=== PATIENT | female | born 1955 | race Caucasian/White ===

== ENCOUNTER 2018-11-02 21:38 | Observation (INO) ==
[2018-11-02 22:32] LABS: BASO# 0.02 X1000 (0.0-0.2); BASO% 0.3 % (0.0-0.8); EOS# 0.06 X1000 (0.0-0.7); EOS% 0.9 % (0.0-10.0); HEMATOCRIT 37.1 % (37.0-47.0); HEMOGLOBIN 13.5 g/dL (12.0-16.0); LYMPH# 2.53 X1000 (1.2-3.4); LYMPH% 36.5 % (20.5-51.1); MCH 33.5 PG (27-31); MCHC 36.4 g/dL (33-37); MCV 92.1 FL (81-99); MONO% 10.1 % (1.7-9.3); NEUT# 3.63 X1000 (1.4-6.5); NEUT% 52.2 % (42.2-75.2); PLT 322 X1000 (130-400); RBC 4.03 XMIL (4.2-5.4); RDW 11.8 % (11.5-14.5); WBC 6.94 X1000 (4.8-10.8)
[2018-11-02 22:42] LABS: INR 0.89; PROTIME 12.1 Seconds (11.0-16.0); PTT 28.6 Seconds (22.3-41.8)
--- NOTE | 2018-11-02 22:52 | EKG Report ---
Test Performed on : 11/02/2018 10:03:42 PM Test Reason : stroke like symptoms Blood Pressure : / mmHG Vent. Rate : 074 BPM Atrial Rate : 074 BPM P-R Int : 140 ms QRS Dur : 084 ms QT Int : 394 ms P-R-T Axes : 064 024 058 degrees QTc Int : 437 ms Normal sinus rhythm. T wave abnormality, consider anterior ischemia Abnormal ECG No previous ECGs available Unconfirmed Result
[2018-11-02 22:56] LABS: ESTIMATED GFR > 60
[2018-11-02 22:59] LABS: AGAP 18; ALB/GLOB RATIO 1.6; ALBUMIN 4.4 g/dL (3.5-5.0); ALKALINE PHOSPHATASE 89 U/L (32-104); BUN 3 mg/dL (8-22); CALCIUM 9.5 mg/dL (8.8-10.2); CHLORIDE 86 mmol/L (98-107); COSMO 247; CREATININE 0.4 mg/dL (0.5-0.9); GLUCOSE 83 mg/dL (70-104); GOT 18 U/L (10-30); GPT 9 U/L (10-36); POTASSIUM 3.7 mmol/L (3.5-5.1); SODIUM 125 mmol/L (136-145); TCO2 21 mmol/L (25-35); TOTAL BILIRUBIN 0.27 mg/dL (0.20-1.00); TOTAL PROTEIN 7.2 g/dL (6.3-8.3)
[2018-11-02 23:15] LABS: FREE T4 1.26 ng/dL (0.93-1.70); TSH 2.48 uIUmL (0.27-4.20)
[2018-11-02 23:26] LABS: BILIRUBIN URINE NEGATIVE (NEGATIVE); BLOOD URINE NEGATIVE (NEGATIVE); COLOR STRAW; GLUCOSE URINE NEGATIVE (NEGATIVE); KETONE URINE NEGATIVE (NEGATIVE); LEUKOCYTES URINE NEGATIVE (NEGATIVE); NITRITE URINE NEGATIVE (NEGATIVE); PH URINE 6.5; PROTEIN URINE NEGATIVE (NEGATIVE); SP GRAVITY URINE 1.004; TURBIDITY URINE CLEAR (CLEAR); URINE SOURCE CLEAN CATCH; UROBILINOGEN URINE NORMAL (NORMAL)
[2018-11-02 23:27] LABS: UR EPITHELIAL CELLS <10 /HPF (<10); URINE BACTERIA NEGATIVE /HPF; URINE RBC <10 /HPF (<10); URINE WBC <10 /HPF (<10)
[2018-11-02 23:43] LABS: UR AMPHETAMINES QUAL NONE DETECTED (NONE DETECT); UR BARBITUATES QUAL NONE DETECTED (NONE DETECT); UR BENZODIAZEPIN QUAL NONE DETECTED (NONE DETECT); UR CANNABINOIDS QUAL NONE DETECTED (NONE DETECT); UR COCAINE QUAL NONE DETECTED (NONE DETECT); UR METHADONE QUAL NONE DETECTED (NONE DETECT); UR OPIATES QUAL NONE DETECTED (NONE DETECT); UR OXYCODONE QUAL NONE DETECTED (NONE DETECT); UR PCP QUAL NONE DETECTED (NONE DETECT)
--- NOTE | 2018-11-03 01:29 | PROVIDER DOCUMENTATION ---
This chart was entered by Payton Carmen Scribe, acting as scribe for Nidia Ramirez MD. HPI-General Adult - General Chief Complaint: Stroke-Like Symptoms Stated Complaint: (R) HAND AND LEG FEEL HEAVY Time Seen by Provider: 11/02/18 22:01 Source: patient Allergies/Adverse Reactions: Patient Allergies Allergy/AdvReac Type Severity Reaction Status Date / Time Penicillins Allergy Intermediate HIVES Verified 11/02/18 22:24 Sulfa (Sulfonamide Allergy Intermediate HIVES Verified 11/02/18 22:24 Antibiotics) Home Medications: Home Medication List Medication Instructions Recorded Confirmed Last Taken Type Alprazolam [Xanax] 0.25 mg PO BID 06/13/15 11/02/18 11/02/18 History Diltiazem HCl [Cardizem] 120 mg PO BID 06/13/15 11/02/18 11/02/18 History - History of Present Illness -Gen Adult Nature of Presenting Problems: Pt is 63/F presenting to ED stating the he R leg and arm feels "heavy" She says that it started about 8:30 last night. She says that she had also begun dropping things. Pt says that she has no hx of stroke. Pt says that she drinks 5-6 beers daily, denies heavier alcohol use. Last alcohol was at 3pm today. Hx of HTN. Pt PCP is Dr. Cooper. Location of Pain/Injury: reports: upper extremity, lower extremity Pain Radiation: reports: no radiation Quality of Pain: reports: other (heaviness) Severity: reports: mild Onset/Duration: reports: 4-6 hours ago Timing: reports: still present Context/Activities at Onset: reports: none Modifying Factors: improves with: nothing Associated Symptoms: denies: arm pain, chest pain, cough, nausea, shortness of breath, vomiting Similar Symptoms Previously?: No Recently seen or treated by another doctor?: No Review of Systems - Adult - REVIEW OF SYSTEMS - ADULT ROS:: vague historian Constitutional: reports: no symptoms reported, see HPI. denies: chills, fever Eyes: reports: no symptoms reported Ears, Nose, Mouth & Throat: reports: no symptoms reported Cardiovascular: reports: no symptoms reported. denies: chest pain Respiratory: reports: no symptoms reported. denies: cough, wheezing Gastrointestinal: denies: abdominal pain, nausea, vomiting Genitourinary: reports: no symptoms reported Musculoskeletal: reports: no symptoms reported. denies: bone pain, back pain Integumentary: reports: no symptoms reported Neurological: reports: see HPI, numbness, paresthesia, other. denies: loss of balance, slurred speech Psychiatric: reports: no symptoms reported Endocrine: reports: no symptoms reported Hematologic/Lymphatic: reports: no symptoms reported Allergic/Immunologic: reports: no symptoms reported All Other Systems: Reviewed and Negative Past History - Adult - PAST MEDICAL HISTORY-ADULT Review of Records: reports: Old Records Reviewed, Nursing Assessment Review, Med ications Reviewed, Social history reviewed & non-contributory. Major Childhood Illnesses: reports: denies history Cardiovascular: reports: HTN Respiratory: reports: denies history Gastrointestinal: reports: denies history Obstetrical/Gynecological: reports: denies history Genitourinary: reports: denies history Musculoskeletal: reports: denies history Neurological: reports: denies history Psychiatric: reports: anxiety, depression, psychiatric problems Endocrine/Immune: reports: denies history Other Conditions: reports: denies history - IMMUNIZATION STATUS Childhood Immunizations: See Nurse Assessment Flu Vaccine: See Nurse Assessment - FAMILY HISTORY Family History: reviewed, not pertinent - SOCIAL HISTORY Smoking: cigarettes, greater than 1 pack/day Provider spent 3-5 mins advising pt. on dangers of tobacco.: Discussed manners to quit use, and f/u contacts for add'l counseling. Substance Use: none/never Alcohol Use Frequency: every day Number of drinks per typical drinking period:: 3-4 drinks Living Situation: family Physical Exam-General - PHYSICAL EXAM-ADULT Initial Vital Signs Reviewed: Yes - CONSTITUTIONAL General Appearance: appears well, alert, thin, other (pt has alcohol odor and was trembling during exam) - EYES Eyes: PERRL/EOMI, pink conjunctivae - HEAD, EARS, NOSE, MOUTH & THROAT HENMT: normocephalic/atraumatic, moist mucous membranes, normal ENT inspection - NECK Neck: non-tender, full range of motion, supple, normal inspection - RESPIRATORY Respiratory: chest non-tender, lungs clear, no respiratory distress, no accessory muscle use - CARDIOVASCULAR Cardiovascular: normal peripheral pulses, regular rate, rhythm, no murmur - GASTROINTESTINAL (ABDOMEN) Abdominal Exam: non tender, soft - MUSCULOSKELETAL Back Exam: normal inspection Extremity: normal range of motion, non-tender, other (ambulates with assistance) - SKIN Integumentary: normal color, normal turgor, warm/dry - NEUROLOGIC Neurologic: other (R arm and R leg drifting as well as some bilateral UE ataxia) . negative: facial droop - PSYCHIATRIC Psych/Mental Status: normal mood/affect, normal thought content, normal thought process, oriented x 3 Progress - PLAN OF CARE/RESULTS Progress/Plan/Lab Results: Vital Signs - 8 hr 11/02/18 21:38 11/02/18 23:57 Temperature 97.6 F Pulse Rate 82 77 Respiratory Rate 15 20 Blood Pressure 152/73 162/73 O2 Sat by Pulse Oximetry 100 95 Laboratory Results - last 24 hr 11/02/18 11/02/18 11/02/18 22:10 22:10 22:10 WBC 6.94 RBC 4.03 L Hgb 13.5 Hct 37.1 MCV 92.1 MCH 33.5 H MCHC 36.4 RDW Std Deviation 11.8 Plt Count 322 MPV 9.0 Immature Gran % (Auto) 0.0 Neut % (Auto) 52.2 Lymph % (Auto) 36.5 Pierce % (Auto) 10.1 H Eos % (Auto) 0.9 Baso % (Auto) 0.3 Immature Gran # (Auto) 0.00 Neut # (Auto) 3.63 Lymph # (Auto) 2.53 Pierce # (Auto) 0.70 H Eos # (Auto) 0.06 Baso # (Auto) 0.02 PT INR PTT (Actin FS) Sodium 125 L Potassium 3.7 Chloride 86 L Carbon Dioxide 21 L Anion Gap 18 BUN 3 L Creatinine 0.4 L Estimated GFR/1.73 m2 > 60 BUN/Creatinine Ratio 8 Glucose 83 Calculated Osmolality 247 Calcium 9.5 Total Bilirubin 0.27 AST 18 ALT 9 L Alkaline Phosphatase 89 Troponin T Total Protein 7.2 Albumin 4.4 Globulin 2.8 Albumin/Globulin Ratio 1.6 TSH Free T4 Urine Source Urine Color Urine Turbidity Urine pH Ur Specific [place] Urine Protein Ur Glucose (Stick) Ur Ketones (Stick) Urine Blood Urine Nitrite Urine Bilirubin Urobilinogen Dipstick Urine Leukocytes Urine WBC (Auto) Urine RBC (Auto) U Epithel Cells (Auto) Urine Bacteria (Auto) Urine Opiates Screen Ur Oxycodone Screen Ur Methadone, Qual Ur Barbiturates Screen Ur Phencyclidine Scrn Ur Amphetamines Screen U Benzodiazepines Scrn Urine Cocaine Screen U Cannabinoids Screen Plasma/Serum Ethyl Alc 95 H 11/02/18 11/02/18 11/02/18 22:10 22:10 22:10 WBC RBC Hgb Hct MCV MCH MCHC RDW Std Deviation Plt Count MPV Immature Gran % (Auto) Neut % (Auto) Lymph % (Auto) Pierce % (Auto) Eos % (Auto) Baso % (Auto) Immature Gran # (Auto) Neut # (Auto) Lymph # (Auto) Pierce # (Auto) Eos # (Auto) Baso # (Auto) PT 12.1 INR 0.89 PTT (Actin FS) 28.6 Sodium Potassium Chloride Carbon Dioxide Anion Gap BUN Creatinine Estimated GFR/1.73 m2 BUN/Creatinine Ratio Glucose Calculated Osmolality Calcium Total Bilirubin AST ALT Alkaline Phosphatase Troponin T < 0.010 Total Protein Albumin Globulin Albumin/Globulin Ratio TSH 2.48 Free T4 1.26 Urine Source Urine Color Urine Turbidity Urine pH Ur Specific [place] Urine Protein Ur Glucose (Stick) Ur Ketones (Stick) Urine Blood Urine Nitrite Urine Bilirubin Urobilinogen Dipstick Urine Leukocytes Urine WBC (Auto) Urine RBC (Auto) U Epithel Cells (Auto) Urine Bacteria (Auto) Urine Opiates Screen Ur Oxycodone Screen Ur Methadone, Qual Ur Barbiturates Screen Ur Phencyclidine Scrn Ur Amphetamines Screen U Benzodiazepines Scrn Urine Cocaine Screen U Cannabinoids Screen Plasma/Serum Ethyl Alc 11/02/18 11/02/18 23:00 23:00 WBC RBC Hgb Hct MCV MCH MCHC RDW Std Deviation Plt Count MPV Immature Gran % (Auto) Neut % (Auto) Lymph % (Auto) Pierce % (Auto) Eos % (Auto) Baso % (Auto) Immature Gran # (Auto) Neut # (Auto) Lymph # (Auto) Pierce # (Auto) Eos # (Auto) Baso # (Auto) PT INR PTT (Actin FS) Sodium Potassium Chloride Carbon Dioxide Anion Gap BUN Creatinine Estimated GFR/1.73 m2 BUN/Creatinine Ratio Glucose Calculated Osmolality Calcium Total Bilirubin AST ALT Alkaline Phosphatase Troponin T Total Protein Albumin Globulin Albumin/Globulin Ratio TSH Free T4 Urine Source CLEAN CATCH Urine Color STRAW Urine Turbidity CLEAR Urine pH 6.5 Ur Specific [place] 1.004 Urine Protein NEGATIVE Ur Glucose (Stick) NEGATIVE Ur Ketones (Stick) NEGATIVE Urine Blood NEGATIVE Urine Nitrite NEGATIVE Urine Bilirubin NEGATIVE Urobilinogen Dipstick NORMAL Urine Leukocytes NEGATIVE Urine WBC (Auto) <10 Urine RBC (Auto) <10 U Epithel Cells (Auto) <10 Urine Bacteria (Auto) NEGATIVE Urine Opiates Screen NONE DETECTED Ur Oxycodone Screen NONE DETECTED Ur Methadone, Qual NONE DETECTED Ur Barbiturates Screen NONE DETECTED Ur Phencyclidine Scrn NONE DETECTED Ur Amphetamines Screen NONE DETECTED U Benzodiazepines Scrn NONE DETECTED Urine Cocaine Screen NONE DETECTED U Cannabinoids Screen NONE DETECTED Plasma/Serum Ethyl Alc Orders Category Date Time Status CT HEAD W/O CONTRAST [CT] Stat Exams 11/02/18 22:02 Taken ALCOHOL BLOOD Stat Lab 11/02/18 22:10 Completed CBC WITH ELECTRONIC DIFF [HEME] Stat Lab 11/02/18 22:10 Completed COMPREHENSIVE METABOLIC PANEL [CHEM] Stat Lab 11/02/18 22:10 Completed FREE T4 Stat Lab 11/02/18 22:10 Completed PROTIME WITH INR [COAG] Stat Lab 11/02/18 22:10 Completed PTT [COAG] Stat Lab 11/02/18 22:10 Completed TROPONIN T Stat Lab 11/02/18 22:10 Completed TSH Stat Lab 11/02/18 22:10 Completed URINALYSIS W/POSS RFLX CULT [URINALYSIS] Stat Lab 11/02/18 23:00 Completed URINE DRUG SCREEN Stat Lab 11/02/18 23:00 Completed EKG [EKG] Stat Ther 11/02/18 21:55 Draft Patient with some drift on right side and some ataxia. Unsure if some of this is due to alcohol as well. She is out of the window for any TPA given that we are 27 hours out from onset of symptoms. Labs showing nothing acute. She has hyponat remia but this appears chronic and unchanged from prior labs. Likely 2.2 to beer drinking. Patient was counseled on labs and imaging findings. Spoke to Dr Howe about OBS admission for stroke rule out given hx of HTN. She is on some odd medication for HTN and states she has never had afib before. She was accepted for admission. Further orders to be placed by their team. Result Diagrams: 11/02/18 22:10 11/02/18 22:10 - CONSULTS/PCP/HOSPITALIST Notification #1 *Consult/PCP/Hospitalist*: Shyam Time Discussed: 00:54 Consult Disposition: Admit Departure - Departure Date of Disposition Decision: 11/03/18 Time of Disposition Decision: 00:54 DIAGNOSIS: Right sided weakness Disposition: ADMITTED INPATIENT 09 Certified Medical Emergency: Emergent Condition: Stable Referrals and Follow-Ups: Karsten Cooper MD [Primary Care Provider] - Discharge Education: Steps to Quit Smoking, [id number] - Critical Care Note This patient required my direct & personal management of CC.: No Attestation - Physician/ ROYAL Attestation Patient care was provided by Advanced Practice Provider:: No The physician spent face to face time with patient:: Yes Advanced Practice Provider documentation review:: Supervising physician onsite and consulted in the evaluation and care of this patient. The physician did have a face to face encounter with the patient. - NIH Stroke Scale NIH Type: Initial Evaluation Level of Consciousness: 0-Alert LOC Questions (ask month and age): 0-Answers Both Correctly LOC Commands (ask to open & close eyes;make a fist, let go): 0-Obeys Both Correctly Best Gaze (horizontal eye movement): 0-Normal Visual (use finger movement, counting or visual threat): 0-No Visual Loss Facial Palsy (show teeth or raise eyebrows & close eyes tght: 0-Symmetrical Movement Motor Function-left arm: 0-Normal Motor Function-right arm: 1-Drift Motor Function-left le-Drift Motor Function-right le-Some Effort Against [place] Limb Ataxia([id number], or heel to roberson): 2-Present in two limbs Sensory(pin prick to face,arms,trunk,legs-compare side/side): 1-Mild to Moderate Decrease in Sensation Best Language(name item/read sentence.Ex-Down to Earth): 0-No Aphasia Dysarthria(Pt read words or say words Ex.Mama,Tip-Top,Thanks: 0-Normal Articulation Extinction and Inattention: 0-Normal NIH Total Score: 7 Modified Cross Anchor Score Criteria: 1-no significant disability despite symptoms This chart was documented by the indicated scribe, (Payton Carmen, Scribe) and accurately reflects the services I performed and decisions made by me, Nidia Ramirez MD, as attested by the provider's signature.
--- NOTE | 2018-11-03 02:14 | ED EKG INTERP ---
EKG Interpretation - EKG Time of EKG reading by physician:: 01:29 EKG Read and Signed by:: Nidia Ramirez EKG Interpretation (*Must complete 3 of following elements*): Normal Rate: 77 Rhythm: NSR Marsing: normal QRS: normal KS Interval: normal ST Wave: normal Attestation - Physician/ ROYAL Attestation The physician spent face to face time with patient:: Yes Advanced Practice Provider documentation review:: Supervising physician onsite and consulted in the evaluation and care of this patient. The physician did have a face to face encounter with the patient.
[2018-11-03] MEDS ORDERED: M.V.I.-12 10 ML, FOLIC ACID 1 MG, MAGNESIUM SULFATE 1 GM, THIAMINE 100 MG in NS 1,000 ML IV ONE (02:40)
--- NOTE | 2018-11-03 04:12 | HISTORY AND PHYSICAL ---
PRIMARY CARE PROVIDER: Dr. Cooper. CHIEF COMPLAINT: Right leg weakness. HISTORY OF PRESENTING ILLNESS: A 63-year-old female with a history of hypertension who had presented to emergency department complaining of having difficulty walking. She states that she was watching TV earlier and when she woke up she had some difficulty walking on her right side. Apparently, she was also drinking alcohol during this time. She was evaluated in the emergency department. She seemed somewhat intoxicated. Her breath smelled of alcohol and her history is not reliable. However, she states that she feels better and she was actually ambulating in the hallway. Due to patient's presenting symptoms, it was thought that we will place her for observation for further evaluation and management. At time of my examination, patient denied any headache, fever, chills, chest pain, shortness of breath, hemoptysis, melena or weight changes. States she feels better and wants to go home. PAST MEDICAL HISTORY: Hypertension. PAST SURGICAL: Hysterectomy. ALLERGIES: Penicillin and sulfa. CURRENT MEDICATIONS: She does not recall and nursing staff will reconcile. SOCIAL HISTORY: A 30 pack years history of smoking. Admits to drinking beer regularly. Denies any illicit drug use. FAMILY HISTORY: No history of coronary artery disease. REVIEW OF SYSTEMS: Fourteen point review of systems as listed in HPI. Other systems negative. PHYSICAL EXAMINATION: GENERAL: Cooperative, friendly female. She is resting comfortably now. VITAL SIGNS: Temperature 97.6 degrees, pulse 82, respirations 15, blood pressure 152/73. HEENT: Atraumatic, normocephalic. Extraocular movements intact. PERRLA. NECK: No masses. CHEST: Clear to auscultation. CARDIOVASCULAR: Regular rate and rhythm. ABDOMEN: Soft. Positive bowel sounds. EXTREMITIES: No edema. NEUROLOGIC: She is awake, alert, oriented x3. Speech is intact. Strength 5/5 all extremities. GENITOURINARY: No bladder distention. SKIN: Warm. LABORATORIES AND STUDIES: Alcohol level was 95. WBC 6.94, hemoglobin 13.5, hematocrit 37.1 platelets 322,000. Sodium 125, potassium 3.7, chloride 86, CO2 is 21, BUN is 3, creatinine 0.4, glucose is 83. CT of the head was unremarkable. ASSESSMENT: This is a 63-year-old female with a history of hypertension and possible chronic alcoholism who had presented to the emergency department with complaint of right leg weakness. Apparently, when she had come to the emergency department she states her symptoms resolved. She had also a smell of alcohol and she was ambulating in the hallway. However due to her presenting symptoms, it was thought that we will keep her for observation for further evaluation and management 1. Possible transient ischemic attack. 2. Alcohol intoxication. 3. Hypertension. PLAN: 1. We will admit patient to medical floor with telemetry. 2. Continue with neuro checks. 3. We will check a carotid duplex. 4. If she is still symptomatic, we will consider MRI. 5. We will give patient a banana bag, and thiamine and folate. 6. Monitor blood pressure closely. 7. Put patient on DVT prophylaxis with SCD. 8. We will continue to follow, reassess and make further recommendation based on patient's clinical course. cc: MD Santana Toscano MD
--- NOTE | 2018-11-03 06:25 | Diag Imaging Result Doc PS360 ---
CT HEAD W/O CONTRAST - 11/02/2018 INDICATION: stroke like symptoms COMPARISON: 05/25/2017 FINDINGS: There is rather extensive cerebral white matter hypodensity compatible with chronic microvascular ischemia. The appearance is stable from prior. No intracranial mass or hemorrhage. The skull is intact. The sinuses, mastoids, and middle ears are clear. There is advanced vascular calcification of the carotid siphons bilaterally. IMPRESSION: No acute process. Stable extensive chronic microvascular ischemia. This exam was performed using automated exposure control, adjustment of mA or kV according to patient size, and/or use of iterative reconstruction technique Electronically signed by Sridhar Lopez 11/03/2018 6:23 AM
[2018-11-03 07:44] VITALS: BP 170/59
[2018-11-03] MEDS ORDERED: CARDIZEM CD PO SCH (09:00)
[2018-11-03] MEDS ORDERED: XANAX PO SCH (09:00)
--- NOTE | 2018-11-04 09:00 | DISCHARGE SUMMARY ---
ADMISSION DATE: 11/03/2018 DISCHARGE DATE: 11/03/2018 DISCHARGING DIAGNOSIS: Right leg weakness etiology to be determined. SECONDARY DIAGNOSIS: 1. Cervical spondylosis, spondylolisthesis L4 on L5. 2. Raynaud's syndrome. 3. Hypertension. 4. Nicotine dependency. 5. Patient with anxiety. BRIEF HISTORY: Please see the H and P that was done by Hospitalist. In brief, she is a 63-year- old white female with above problems, came to the hospital with difficulty walking and numbness and weakness in the right leg. The patient was drinking alcohol. She was not seen in my office since last year. She lost her . She smokes. Upon questioning, the patient did not have any weakness in the right side, no headaches, no TIA symptoms. No back pain. The patient was admitted for observation. During the hospital course, neurovascular exam is intact. Straight leg raise test was normal. Pulses are palpable. WORKUP: As follows: 1. CBC: white count 6.9, hematocrit 37, platelets 322. PT 12, INR 0.89. Sodium 135, potassium 3.7, BUN 3, creatinine 0.4, glucose 83. LFTs were normal. TSH, free T4, cardiac enzymes were negative. Urinalysis is clear. Urine toxicology screen was negative. Plasma alcohol 95. 2. EKG normal sinus, T wave inversion in the lateral leads. CT head: Extensive chronic microvascular ischemia, no acute process. The patient is anxious to go home. Carotid Doppler was done, results are pending. The patient wants to go home with the following instructions: 1. Cardizem 120 p.o. b.i.d. 2. Xanax 0.25 mg p.o. b.i.d. 3. Quit smoking. 4. Aspirin 81 mg daily. 5. Follow up on the pending lab results. 6. Repeat the SMA-7, lipid panel, A1c, B12, TSH in my office, and follow up in my office next week. cc: Santana Cooper MD MTDD
--- NOTE | 2018-11-05 07:09 | Carotid Study ---
DATE: 11/03/2018 REQUESTING PHYSICIAN: Dr. Cooper. FISH HATCHERY SUPERINTENDENT: Hieu. INDICATIONS: TIA. EQUIPMENT: [employer] Vivid E9 ultrasound system with a 9L-D transducer. FINDINGS: Complete diagram of ultrasound images can be seen scanned to patient's medical record. The peak systolic velocity noted on the right side is in the distal internal, was 74. The peak systolic velocity on the left side is noted to be in the proximal internal, noted to be 117. Calculated internal to common ratio on the right 0.84 and left 1.02. Calculated stenosis on the right 0 to 39 percent, left 40 to 59 percent. There appears to be atherosclerosis. This is more visually prominent on the left side, which is producing a moderate stenosis of 40 to 59 percent. Both vertebral arteries were antegrade flow. INTERPRETATION: Moderate stenosis on the left side of 40 to 59 percent. The right side is normal to mild with a stenosis of 0 to 39 percent. Given these findings, I would recommend continue monitoring. cc: MD John Chowdhury MD Jagan Reddy, MD
== END 2018-11-03 11:41 | disposition home or self-care (01) ==
LOC: ED 21:38 → 3N 21:38 → SUATTDRO 11-03 02:11
PROVIDERS: ADMIT Internal Medicine; ATTEND Internal Medicine

== ENCOUNTER 2019-01-30 16:21 | Inpatient (IN) ==
[2019-01-30 17:24] LABS: URINE SOURCE CLEAN CATCH
[2019-01-30 17:27] LABS: BASO# 0.03 X1000 (0.0-0.2); BASO% 0.6 % (0.0-0.8); EOS# 0.02 X1000 (0.0-0.7); EOS% 0.4 % (0.0-10.0); HEMATOCRIT 35.8 % (37.0-47.0); HEMOGLOBIN 12.7 g/dL (12.0-16.0); LYMPH# 2.19 X1000 (1.2-3.4); LYMPH% 43.6 % (20.5-51.1); MCH 33.4 PG (27-31); MCHC 35.5 g/dL (33-37); MCV 94.2 FL (81-99); MONO# 0.69 X1000 (0.11-0.59); MONO% 13.7 % (1.7-9.3); MPV 9.1 FL (7.4-10.4); NEUT# 2.09 X1000 (1.4-6.5); NEUT% 41.7 % (42.2-75.2); PLT 302 X1000 (130-400); RDW 11.4 % (11.5-14.5); WBC 5.02 X1000 (4.8-10.8)
[2019-01-30 17:28] LABS: BILIRUBIN URINE NEGATIVE (NEGATIVE); BLOOD URINE NEGATIVE (NEGATIVE); COLOR YELLOW; GLUCOSE URINE NEGATIVE (NEGATIVE); KETONE URINE NEGATIVE (NEGATIVE); LEUKOCYTES URINE NEGATIVE (NEGATIVE); NITRITE URINE NEGATIVE (NEGATIVE); PH URINE 6.5; PROTEIN URINE NEGATIVE (NEGATIVE); SP GRAVITY URINE 1.006; TURBIDITY URINE CLEAR (CLEAR); UROBILINOGEN URINE NORMAL (NORMAL)
[2019-01-30 17:29] LABS: UR EPITHELIAL CELLS <10 /HPF (<10); URINE BACTERIA NEGATIVE /HPF; URINE RBC <10 /HPF (<10); URINE WBC <10 /HPF (<10)
[2019-01-30 17:34] LABS: INR 0.95; PROTIME 12.7 Seconds (11.0-16.0); PTT 27.1 Seconds (22.3-41.8)
--- NOTE | 2019-01-30 18:09 | Diag Imaging Result Doc PS360 ---
EXAM: CT HEAD W/O CONTRAST INDICATION: Left upper extremity weakness TECHNIQUE: This exam was performed using automated exposure control, adjustment of mA or kV according to patient size, and/or use of iterative reconstruction technique. COMPARISON: 11/02/2018 FINDINGS: There is extensive patchy low attenuation in the periventricular and subcortical white matter suggesting advanced microangiopathy, stable. There is a stable chronic lacunar infarct in the periventricular white matter on the left. There is no definite acute infarct given the limited sensitivity of CT versus MRI. There is no discrete intracranial mass, mass effect, or intracranial hemorrhage. The surrounding soft tissues and bony structures are essentially unremarkable. IMPRESSION: Stable chronic changes. No definite acute intracranial pathology by CT. Electronically signed by Teddy Reynoso 01/30/2019 6:07 PM
[2019-01-30 18:16] LABS: ESTIMATED GFR > 60
[2019-01-30 18:21] LABS: AGAP 17; ALB/GLOB RATIO 1.7; ALBUMIN 4.1 g/dL (3.5-5.0); ALKALINE PHOSPHATASE 73 U/L (32-104); BUN 5 mg/dL (8-22); CALCIUM 9.1 mg/dL (8.8-10.2); CHLORIDE 86 mmol/L (98-107); CK PROFILE 63 U/L (24-173); COSMO 250; CREATININE 0.5 mg/dL (0.5-0.9); GLUCOSE 80 mg/dL (70-104); GOT 23 U/L (10-30); GPT 12 U/L (10-36); POTASSIUM 3.3 mmol/L (3.5-5.1); SODIUM 126 mmol/L (136-145); TCO2 23 mmol/L (25-35); TOTAL BILIRUBIN 0.22 mg/dL (0.20-1.00); TOTAL PROTEIN 6.5 g/dL (6.3-8.3)
[2019-01-30] MEDS ORDERED: M.V.I.-12 10 ML, FOLIC ACID 1 MG, MAGNESIUM SULFATE 1 GM, THIAMINE 100 MG in NS 1,000 ML IV ONE (19:18)
[2019-01-30] MEDS ORDERED: NS 1,000 ML IV ONE (19:18)
--- NOTE | 2019-01-30 20:05 | PROVIDER DOCUMENTATION ---
This chart was entered by Arely Murray Scribe, acting as scribe for Boyd Carpio MD. HPI-General Adult - General Chief Complaint: Nausea Stated Complaint: RESTREPO/N Time Seen by Provider: 01/30/19 16:26 Source: patient, EMS (first response) Allergies/Adverse Reactions: Patient Allergies Allergy/AdvReac Type Severity Reaction Status Date / Time Penicillins Allergy Intermediate HIVES Verified 01/29/19 21:18 Sulfa (Sulfonamide Allergy Intermediate HIVES Verified 01/29/19 21:18 Antibiotics) Home Medications: Home Medication List Medication Instructions Recorded Confirmed Last Taken Type Alprazolam [Xanax] 0.25 mg PO BID 06/13/15 01/29/19 11/02/18 History Diltiazem HCl [Cardizem] 120 mg PO BID 06/13/15 01/29/19 11/02/18 History Tramadol/APAP [Ultracet 1 tab PO PRN PRN 01/29/19 01/29/19 Unknown History 37.5MG/325Mg] - History of Present Illness -Gen Adult Nature of Presenting Problems: from last nights visit to ed pt refused a CT: Pt is refusing head CT, pt is sober at this time, alert and oriented, steady gait, answering questions appropriately, pt has capacity, understands the risks, benefits and alternatives and is choosing to leave AMA, pt given strict return precautions for any new or worsening symptoms Result Diagrams: 63 yowf presents to the ed via ems for 2nd time in 2 days for same complaints. pt sts today she has worsening left arm heaviness, nausea, left neck pain, sob, loose stool and RESTREPO. pt sts "I feel like I had a stroke but I aint never had one before". pt on exam is in no distress has no weakness or neuro deficits. pt once back sts sx have all worsened. pt has chronic back pain Location of Pain/Injury: reports: upper extremity Pain Radiation: reports: no radiation Quality of Pain: reports: other (heaviness) Severity: reports: mild Onset/Duration: reports: 24 hours ago Timing: reports: still present, intermittent, getting worse Context/Activities at Onset: reports: light activity Modifying Factors: improves with: nothing Associated Symptoms: reports: arm pain (heaviness), back/neck pain (chronic), headaches, malaise, nausea, shortness of breath. denies: chest pain, diarrhea (does have mild loose stool but not diarrhea), fever/chills, vomiting Similar Symptoms Previously?: Yes Recently seen or treated by another doctor?: Yes (seen last night in ed ) Review of Systems - Adult - REVIEW OF SYSTEMS - ADULT Constitutional: denies: chills, fever Eyes: reports: no symptoms reported Ears, Nose, Mouth & Throat: reports: no symptoms reported Cardiovascular: denies: chest pain, palpitations Respiratory: reports: see HPI, shortness of breath. denies: cough, wheezing Gastrointestinal: reports: see HPI, nausea. denies: diarrhea, vomiting Genitourinary: reports: no symptoms reported Musculoskeletal: reports: see HPI, back pain (chronic). denies: neck pain Integumentary: reports: no symptoms reported Neurological: reports: see HPI, headache/migraines. denies: dizziness/vertigo, slurred speech, syncope, tremors Psychiatric: reports: see HPI, alcohol/drug dependence (etoh) Endocrine: reports: no symptoms reported Hematologic/Lymphatic: reports: see HPI, easy bruising Allergic/Immunologic: reports: no symptoms reported All Other Systems: Reviewed and Negative Past History - Adult - PAST MEDICAL HISTORY-ADULT Review of Records: reports: Old Records Reviewed, Nursing Assessment Review, Medications Reviewed, Social history reviewed & non-contributory. Major Childhood Illnesses: reports: denies history Cardiovascular: reports: HTN Respiratory: reports: denies history Gastrointestinal: reports: denies history Obstetrical/Gynecological: reports: denies history Genitourinary: reports: denies history Musculoskeletal: reports: chronic pain, neck/back injury Neurological: reports: denies history Psychiatric: reports: anxiety, depression, psychiatric problems Endocrine/Immune: reports: denies history Other Conditions: reports: denies history - PRIOR SURGERIES/PROCEDURES Surgical/Procedure History: reports: hysterectomy, orthopedic (extremity) - IMMUNIZATION STATUS Childhood Immunizations: See Nurse Assessment Flu Vaccine: See Nurse Assessment - FAMILY HISTORY Family History: reviewed, not pertinent - SOCIAL HISTORY Smoking: cigarettes, less than 1 pack/day Substance Use: alcohol Alcohol Use Frequency: every day Number of drinks per typical drinking period:: 5-10 drinks Living Situation: alone Physical Exam-General - PHYSICAL EXAM-ADULT Initial Vital Signs Reviewed: Yes - CONSTITUTIONAL General Appearance: appears well, alert, no apparent distress - EYES Eyes: PERRL/EOMI, pink conjunctivae - HEAD, EARS, NOSE, MOUTH & THROAT HENMT: moist mucous membranes - NECK Neck: non-tender, full range of motion, normal inspection - RESPIRATORY Respiratory: chest non-tender, lungs clear, normal breath sounds, decreased rate - CARDIOVASCULAR Cardiovascular: normal peripheral pulses, regular rate, rhythm - CHEST (BREASTS) Chest/Breast: deferred - GASTROINTESTINAL (ABDOMEN) Abdominal Exam: normal bowel sounds, non tender, soft, other (c/o nausea) - GENITOURINARY Female Genitalia/Pelvic Exam: deferred Rectal Exam: deferred Hemoccult Exam: deferred - MUSCULOSKELETAL Back Exam: normal inspection, no CVA tenderness, no vertebral tenderness Extremity: normal range of motion, normal inspection, no pedal edema, no calf tenderness, normal capillary refill, other (equal health and safety manager strength) - SKIN Integumentary: normal color, normal turgor, abrasion(s) - NEUROLOGIC Neurologic: b2b sales representative II-XII nml as tested, no motor/sensory deficits. negative: aphasia, facial droop, focal weakness - PSYCHIATRIC Psych/Mental Status: normal mood/affect, normal thought content, normal thought process, oriented x 3 Progress - PLAN OF CARE/RESULTS Progress/Plan/Lab Results: Vital Signs - 8 hr 01/30/19 16:40 Pulse Rate 84 Respiratory Rate 11 L Blood Pressure 153/88 O2 Sat by Pulse Oximetry 95 Result Diagrams: 01/30/19 17:17 01/30/19 17:17 - REASSESSMENT Reassessment #1 Time Reassessed: 19:00 (Pt's labs are significant for hyponatremia and hypokalemia; may be due in part to chronic alcohol use; alcohol level is still elevated; CT Head and other work-up negative for acute findings. Dr. Howe kindly accepts the pt for observation.) - EKG 1 Time of EKG reading by physician:: 17:17 EKG Read and Signed by:: Zeke Casanova EKG Interpretation (*Must complete 3 of following elements*): Normal Rate: 78 Rhythm: sinus rhythm [place]: normal QRS: normal [place] Interval: normal ST Wave: normal - CONSULTS/PCP/HOSPITALIST Notification #1 *Consult/PCP/Hospitalist*: Dr. Howe Time Discussed: 19:15 Consult Disposition: Admit Departure - Departure Date of Disposition Decision: 01/30/19 Time of Disposition Decision: 20:01 DIAGNOSIS: Hyponatremia, Left arm weakness Disposition: ADMITTED INPATIENT 09 Certified Medical Emergency: Emergent Condition: Fair Referrals and Follow-Ups: Karsten Cooper MD [Primary Care Provider] - - Critical Care Note This patient required my direct & personal management of CC.: No Attestation - Physician/ ROYAL Attestation Patient care was provided by Advanced Practice Provider:: No The physician spent face to face time with patient:: Yes Advanced Practice Provider documentation review:: Supervising physician onsite and consulted in the evaluation and care of this patient. The physician did have a face to face encounter with the patient. This chart was documented by the indicated scribe, (Arely Murray Scribe) and accurately reflects the services I performed and decisions made by me, Boyd Carpio MD, as attested by the provider's signature.
[2019-01-30] MEDS ORDERED: KLOR-CON PO ONE (20:55)
[2019-01-30] MEDS ORDERED: TYLENOL PO PRN (22:04)
[2019-01-30] MEDS ORDERED: ZOFRAN IV PRN (22:04)
--- NOTE | 2019-01-30 22:11 | EKG Report ---
Test Performed on : 01/30/2019 5:11:48 PM Test Reason : chest discomfort Blood Pressure : / mmHG Vent. Rate : 078 BPM Atrial Rate : 078 BPM P-R Int : 130 ms QRS Dur : 082 ms QT Int : 404 ms P-R-T Axes : 068 031 051 degrees QTc Int : 460 ms Normal sinus rhythm. Normal ECG When compared with ECG of 02-NOV-2018 22:03, T wave inversion no longer evident in Anterior leads Unconfirmed Result
--- NOTE | 2019-01-30 22:14 | HISTORY AND PHYSICAL ---
CHIEF COMPLAINT: Nausea, heaviness in the left arm, left neck pain, shortness of breath. HISTORY OF PRESENT ILLNESS: Ms. Orr is a 63-year-old female who comes into the emergency room for the 2nd time in 2 days. Yesterday, she came in but deferred wanting to have a CT scan and decided to leave against medical advice. She was told to come back if her symptoms worsened. She is known to have a history of hypertension and alcohol and tobacco use and abuse. She is an everyday drinker, 5-10 drinks. Today, she states that her left arm heaviness is worse. She is having nausea, left neck pain, shortness of breath, loose stools and headache. States that she feels like she has had a stroke but she has never had one before in her own words. On exam, she has no weakness or neurologic deficits. Her laboratory data does show hyponatremia which is likely related to beer potomania. She was admitted back on 11/03/2018 for a very similar complaint. She was worked up for a TIA. She was found to have left side 40% to 59% occlusion of her carotid. The right side is normal to mild with 0% to 39%. CT of her head was completed. It showed stable chronic lacunar infarct in the periventricular white matter on the left. Again, this was similar to what was seen back on 11/02/2018. The patient's alcohol level is still elevated at 111. Her potassium is low. She will be admitted and observed for further evaluation and treatment. PAST MEDICAL HISTORY: Alcohol abuse, tobacco abuse, hypertension. PREVIOUS SURGICAL HISTORY: Hysterectomy. SOCIAL HISTORY: Thirty pack-year smoking history. Beer daily, 5-10. Denies illicit drugs. FAMILY HISTORY: She denies a family history of coronary artery disease. ALLERGIES: Penicillin and sulfa. HOME MEDICATIONS: The patient states she does not recall. An order was placed for Nursing to reconcile home medications with the pharmacy. REVIEW OF SYSTEMS: Fourteen-point review of systems conducted with the patient. Pertinent positives listed above in the HPI. All other systems reviewed negative. PHYSICAL EXAMINATION: VITAL SIGNS: Pulse 87, respirations 17, blood pressure 169/89, oxygen saturation 96% on room air. GENERAL: A 63-year-old female sitting in the ER stretcher, seems anxious. She is alert and oriented times 3. No neurologic deficits noted. She is in no acute distress. HEENT: Head is atraumatic, normocephalic. Pupils equal, round, reactive to light. Extraocular eye movement is intact. Sclera is anicteric. Conjunctiva is pink. Oral mucosa is dry. NECK: Supple. No JVD. No thyromegaly. Trachea is midline. No cervical lymphadenopathy. CARDIAC: S1, S2 appreciated. No murmurs, gallops, rubs. LUNGS: Clear to auscultation. No rhonchi, wheezes, rales. Symmetric rise and fall with respirations. ABDOMEN: Soft, nondistended, nontender. Bowel sounds present all 4 quadrants, normoactive. No pulsatile mass. No organomegaly. EXTREMITIES: No clubbing, cyanosis or edema. NEUROLOGICAL: Alert and oriented times 3. Cranial nerves 2 through 12 grossly intact. MUSCULOSKELETAL: 5/5 strength upper and lower extremities, equal bilaterally. GENITOURINARY: No bladder distention. Patient voids. Otherwise deferred. DIAGNOSTIC DATA: As mentioned above in the HPI, CT scan shows chronic stable changes. EKG shows sinus rhythm with a rate of 78. LABORATORY DATA: WBC 5.02. Hemoglobin 12.7. Hematocrit 35.8. Platelet count 302. Coagulation studies within normal limits. Sodium 126. Potassium 3.3. Chloride 86. Carbon dioxide 23. BUN 5. Creatinine 0.5. Glucose 80. Urine unremarkable. Serum alcohol 111. ASSESSMENT: 1. Acute alcohol intoxication. 2. Chronic alcohol use and abuse. 3. 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 4. Hypokalemia. PLAN: Admit patient in observation status. Check her magnesium and phosphorus. We will give thiamine 100 mg IV for 3 days. Smoking cessation as well as alcohol reduction or cessation were gone over with the patient. It is likely that her sodium is off related to beer potomania. It has been low for over a year now on her visits. Potassium is also likely low related to chronic alcohol use. We will correct these, recheck laboratory data, monitor neurologic status. Further recommendations per patient clinical course. Dictated by ELROY Segura for John Howe MD I have performed a face to face diagnostic evaluation. Labs/Xrays- reviewed. Exam- Chest -clear, CV- regular. A/P- Acute alcohol intoxication- Admit, supportive care, IV flulids. Dr. Howe cc: ELROY Segura MD Jagan Reddy, MD MTDD
[2019-01-30] MEDS: NS 1,000 ML IV SCH (23:10)
[2019-01-30 23:30] LABS: MAGNESIUM 1.8 mg/dL (1.5-2.7); PHOSPHORUS 2.5 mg/dL (2.7-4.5)
[2019-01-31 07:31] LABS: AGAP 15; BUN 4 mg/dL (8-22); CALCIUM 8.2 mg/dL (8.8-10.2); CHLORIDE 95 mmol/L (98-107); COSMO 260; CREATININE 0.3 mg/dL (0.5-0.9); ESTIMATED GFR > 60; GLUCOSE 79 mg/dL (70-104); POTASSIUM 3.8 mmol/L (3.5-5.1); SODIUM 132 mmol/L (136-145); TCO2 22 mmol/L (25-35)
[2019-01-31] MEDS ORDERED: LIBRIUM PO ONE (08:12)
[2019-01-31] MEDS ORDERED: THIAMINE 100 MG in NS 50 ML IV SCH (09:00)
[2019-01-31] MEDS ORDERED: CARDIZEM CD PO SCH (09:00)
[2019-01-31 11:23] VITALS: BP 186/78
--- NOTE | 2019-01-31 14:08 | PROGRESS NOTE ---
DATE: 01/31/2019 SUBJECTIVE: I am seeing the patient in Dr. Cooper's absence. The patient was admitted last evening with beer drinker potomania. She was given saline and banana bag, this morning she is without any symptoms. She says she feels well overall. Sodium has risen from 126 to 132. Nurses had called me earlier this morning and she was admitted with a blood alcohol level 111 and so she did not receive any benzodiazepines during the night but this morning she began having some mild anxiety and the nurses had called me a couple hours ago with some mild anxiety and I had given her Librium 20 mg and she has normalized with her anxiety level now but she relates that she has a dog at home that is without care. She says all her family lives in [place]. She has a friend but the friend works and so she has no one to help care for the dog while she is in the hospital. She has decided she wants to go home. I discussed with her that her sodium is improved to 132, but she still needs to stay and improve her sodium level with more treatment but she declines. I discussed that this would be against medical advice and she is aware and she wants to sign out against medical advice. We had given her Librium earlier, although she appears stable at baseline we will keep her about 4 hours to make sure she has no affects of the Librium and then will allow her to discharge herself against medical advice. I strongly encouraged her to remain in the hospital for ongoing treatment but she declines. She has had this tendency in the past by old records. OBJECTIVE: Afebrile, pulse 89, respirations 20, blood pressure 184/78. Earlier this morning prior to her Cardizem being restarted, O2 saturation 96%.CV: RRR without murmur. Lungs: CTA. Abdomen: Nontender. Extremities: No calf tenderness, cords or edema. Neurologic: Cranial nerves 2-12 are intact. She moves all extremities well. She is alert and oriented x4. No major tremulousness noted at this time. ASSESSMENT: 1. Beer drinker potomania. 2. Alcohol abuse. 3. Hypertension. 4. Tobacco abuse. PLAN: Again encouraged ongoing treatment in the hospital. She refuses. We encouraged her to resume her home medications of Xanax, diltiazem ER and Ultracet and she is aware that we will provide no additional medication prescriptions as she is signing out against medical advice. Encouraged her to follow up with Dr. Cooper within a week. Encouraged her and counseled her to leave off alcohol completely. cc: MD Santana Byrne MD
[2019-01-31] MEDS: NS 1,000 ML IV SCH (14:44)
--- NOTE | 2019-01-31 16:04 | EKG Report ---
Test Performed on : 01/31/2019 05:46:32 AM Test Reason : chest pain Blood Pressure : / mmHG Vent. Rate : 084 BPM Atrial Rate : 084 BPM P-R Int : 124 ms QRS Dur : 078 ms QT Int : 400 ms P-R-T Axes : 075 058 058 degrees QTc Int : 472 ms Normal sinus rhythm. Normal ECG When compared with ECG of 30-JAN-2019 17:11, (Unconfirmed) No significant change was found Confirmed by David KIRBY, Gabe ([id number]) on 02/02/2019 9:19:08 AM
== END 2019-01-31 13:50 | disposition left against medical advice (07) | DRG 641 ==
LOC: SUPCPDRO → ED 16:21 → SUATTDRO 21:45 → 4N 21:45 → INTOOBSV 21:45
PROVIDERS: ADMIT Internal Medicine; ATTEND Internal Medicine